=== PATIENT | female | born 2000 | race Caucasian/White ===

== ENCOUNTER 2021-12-21 19:27 | Emergency (ER) | payer OTHER ==
[~2021-12-21] VITALS: Ht 162.6 cm; Wt 52.2 kg
--- NOTE | 2021-12-21 19:46 | NUR ---
TO ER BED 11. BIBSELF SORE THROAT X 1 WEEK. NOT RELEIVED BY [facility]. PT DENIES SOB. AWAITING MD DE LA ROSA
[2021-12-21] MEDS ORDERED: DEXAMETHASONE 1 MG TABLET ONE (20:00)
[2021-12-21] MEDS ORDERED: DEXAMETHASONE 1 MG TABLET PO ONE (20:00)
--- NOTE | 2021-12-21 20:05 | NUR ---
STREP THROAT SWAB COLLECTED AND SENT TO LAB
[2021-12-21] MEDS ORDERED: AMOX500T2 PO (20:35)
[2021-12-21 20:45] VITALS: BP 127/60
--- NOTE | 2021-12-21 20:45 | NUR ---
Patient discharged to home in stable condition. Written and verbal after care instructions given. Patient verbalizes understanding of instruction.
== END 2021-12-21 20:46 | disposition home or self-care (01) ==
LOC: ER 19:31
DX: J02.0 Streptococcal pharyngitis (principal); Z79.899 Other long term (current) drug therapy
CPT/HCPCS: 87070; 87077; 87880; 99283; J8540; 86403-TC